=== PATIENT | female | born 1995 | race Caucasian/White ===

== ENCOUNTER → 2020-09-27 | Outpatient (CLI) | payer BC ==
--- NOTE | 2020-09-27 12:30 | Diagnostic Imaging Report ---
INDICATION: Anatomy scan. TECHNIQUE: Multiple real-time grayscale images were obtained over the gravid uterus. COMPARISON: None. FINDINGS: Single live fetus in a breech presentation. heart rate was recorded at 169 BPM. Placenta is posterior and fundal. Amniotic fluid index is 9.1 cm. Cervical length is approximately 4.6 cm. survey demonstrates kidneys, bladder, and stomach to be unremarkable. brain is unremarkable. There is a four-chamber heart. There is a three-vessel cord with normal insertion. spine is unremarkable. Biometrical measurements are as follows: Biparietal 4.45 cm, age 19 weeks 4 days. Head circumference 16.78 cm, age 19 weeks 4 days. Abdominal circumference 14.38 cm, age 19 weeks 5 days. Femur length 3.02 cm, age 19 weeks 3 days. Sonographic estimate age: 19 weeks 4 days. Sonographic estimated date of delivery: 02/17/2021. Estimated Weight: 298 gm (+/- 43 gm). LMP percentile: 43%. heart rate: 169 beats per minute. number: 1 of 1. IMPRESSION: Single live IUP at 19 weeks 3 days gestational age. Estimated date of confinement sonographically is 02/17/2021. Dictated by: Dictated on workstation # [id number]
== END ==
LOC: RAD 10:00
PROVIDERS: ATTEND Nurse Practitioner Women's Health
DX: Z34.02 Encounter for supervision of normal first pregnancy, second trimester (principal); Z3A.19 19 weeks gestation of pregnancy
CPT/HCPCS: 76805

== ENCOUNTER 2021-01-15 18:35 | Outpatient (CLI) | payer BC ==
[~2021-01-15] VITALS: Ht 165 cm; Wt 65.3 kg
[2021-01-15 18:40] VITALS: BP 114/70
[2021-01-15 19:00] VITALS: BP 114/70
[2021-01-15] MEDS ORDERED: ONDANSETRON 4 MG (ZOFRAN) ORAL DISSOLVE TAB PO STA (20:14)
[2021-01-15] MEDS ORDERED: ONDN4T PO (20:17)
[2021-01-15] MEDS ORDERED: ONDANSETRON 4 MG (ZOFRAN) ORAL DISSOLVE TAB ONE (20:27)
--- NOTE | 2021-01-16 07:40 | Physician Query-Final Dx ---
Clinic Account Progress/Dx Physician Query: Please give diagnosis Please include # weeks gestation Date of Service Jan 15, 2021 at 18:35 DIEGO MALLOY Jan 16, 2021 07:40
== END 2021-01-15 20:54 ==
LOC: WSo 18:35 → LDRP 18:35 → WSo 20:54
PROVIDERS: ATTEND Obstetrics & Gynecology
DX: O42.90 Premature rupture of membranes, unspecified as to length of time between rupture and onset of labor, unspecified weeks of gestation (principal); Z3A.00 Weeks of gestation of pregnancy not specified
CPT/HCPCS: 99214

== ENCOUNTER 2021-02-07 19:07 | Inpatient (IN) | payer BC ==
[~2021-02-07] VITALS: Ht 165.1 cm; Wt 64.4 kg
[~2021-02-07 19:07] MED LIST: ONDN4T PO
[2021-02-07] MEDS ORDERED: LACTATED RINGERS 1,000 ML IV SCH (19:30)
[2021-02-07 20:00] VITALS: BP 109/70
[2021-02-07 20:14] LABS: BASOPHILS % (AUTO) 0 % (0-10); EOSINOPHILS % (AUTO) 0 % (0-10); HEMATOCRIT 34 % (35-52); HEMOGLOBIN 11.3 g/dL (11.5-16.0); LYMPHOCYTES # (AUTO) 1.7 10^3/uL (1.0-4.0); LYMPHOCYTES % (AUTO) 19 % (12-44); MEAN CORPUSCULAR HEMOGLOBIN 29 pg (25-34); MEAN CORPUSCULAR HGB CONC 33 g/dL (32-36); MEAN CORPUSCULAR VOLUME 87 fL (80-99); MEAN PLATELET VOLUME 11.2 fL (9.0-12.2); MONOCYTES # (AUTO) 0.8 10^3/uL (0.0-1.0); MONOCYTES % (AUTO) 9 % (0-12); NEUTROPHILS # (AUTO) 6.5 10^3/uL (1.8-7.8); NEUTROPHILS % (AUTO) 71 % (42-75); PLATELET COUNT 192 10^3/uL (130-400); WHITE BLOOD COUNT 9.1 10^3/uL (4.3-11.0)
[2021-02-07 20:18] VITALS: BP 109/70
[2021-02-07 20:23] LABS: BILIRUBIN,URINE NEGATIVE (NEGATIVE); CLARITY,URINE CLEAR; COLOR,URINE YELLOW; GLUCOSE, URINE (UA) NEGATIVE (NEGATIVE); KETONES,URINE NEGATIVE (NEGATIVE); LEUKOCYTE ESTERASE ,URINE NEGATIVE (NEGATIVE); NITRITE,URINE NEGATIVE (NEGATIVE); PROTEIN,URINE 1+ (NEGATIVE)
[2021-02-07] MEDS: D5 LR IV SOLUTION 1,000 ML IV SCH (20:27)
[2021-02-07 21:00] VITALS: BP 108/68
[2021-02-07 21:03] LABS: BACTERIA,URINE MODERATE /HPF; CALCIUM OXALATE CRYSTALS,UR MODERATE /LPF; WBC,URINE RARE /HPF
[2021-02-07 21:04] LABS: URINE OTHER CLUE CELLS /HPF
[2021-02-07 22:00] VITALS: BP 106/61
[2021-02-07] MEDS ORDERED: CATHETER FLUSH 10 ML SYR IV SCH (22:00)
[2021-02-07 23:00] VITALS: BP 92/54
[2021-02-07 23:20] VITALS: BP 90/55
[2021-02-08] VITALS (59 sets, daily range): BP systolic 80–165; BP diastolic 48–83
[2021-02-08] MEDS: D5 LR IV SOLUTION 1,000 ML IV SCH ×2 (04:26→12:25)
[2021-02-08] MEDS ORDERED: OXYTOCIN PRE-MIX DRIP 500 ML IV SCH ×2 (08:15→19:45)
[2021-02-08] MEDS ORDERED: fentaNYL 2 mcg/ml BUPIVA 0.125 100 ML ONE (10:56)
[2021-02-08] MEDS ORDERED: fentaNYL INJ 100 MCG/2 ML AMP ONE (11:20)
[2021-02-08] MEDS ORDERED: METOCLOPRAMIDE INJ 10 MG/2 ML (REGLAN) IV PRN (12:15)
[2021-02-08] MEDS ORDERED: ONDANSETRON 4 MG/2 ML (SDV) Z0FRAN IV PRN (12:15)
[2021-02-08] MEDS ORDERED: NALOXONE 0.4 MG/ML 1 ML (NARCAN) VIAL IV PRN ×3 (12:15→19:45)
[2021-02-08] MEDS ORDERED: diphenhydrAMINE 50 MG/ML INJ (BENADRYL) IV PRN (12:15)
[2021-02-08] MEDS ORDERED: EPIDURAL (fentaNYL 2 MCG/ML BUPIVA 0.125%)100 ML BAG EPI PRN (12:15)
[2021-02-08] MEDS ORDERED: LACTATED RINGERS 1,000 ML IV ONE (12:15)
[2021-02-08] MEDS ORDERED: LIDOCAINE/EPI 2% 1:200,00 (XYLOCAINE) 20 ML VIAL ONE (18:39)
[2021-02-08] MEDS ORDERED: METHYLERGONOVINE 0.2 MG/ML (METHERGINE) AMP ONE (19:26)
--- NOTE | 2021-02-08 19:34 | History & Physical-OB ---
OB - Chief Complaint & HPI Date/Time Date of Admission: Date of Admission: Feb 07, 2021 at 19:07 Date seen by a Provider: Feb 08, 2021 Time Seen by a Provider: 07:30 Chief Complaint/History OB-Reason for Admission/Chief: Induction of Labor Hx : 1 Hx Para: 0 Expected Date of Delivery: Feb 13, 2021 Gestational Age in Weeks: 39 Gestational Age in Days: 1 Admission Nurse Assessment Rev: Yes History of Labs GBS neg Allergies and Home Medications Allergies Coded Allergies: No Known Drug Allergies (Unverified , 01/15/21) Home Medications Ondansetron HCl 4 Mg Tab, 8 MG PO PRN Prescribed by: TATUM BOSS on 01/15/212016 Patient Home Medication List Home Medication List Reviewed: Yes OB - History Hx of Present Care: Yes Ultrasounds: Normal mid trimester US Obstetrical Complications: None Medical Complications: None Patient Past Medical History n/a Social History/Family History 2nd Hand Smoke Exposure: No OB - Admission Exam Physical Exam Vitals: Vital Signs 02/08/21 02/08/21 02/08/21 15:00 17:30 18:45 Temp 36.4 Pulse 76 Resp 18 B/P (MAP) 165/60 (95) Pulse Ox 100 O2 Delivery Room Air HEENT: NCAT Heart: Rhythm Normal Lungs: Clear Abdomen: Gravid Extremities: Normal Reflexes: Normal Cervical Dilatation: 2cm Effacement: 75% Station: -1 Membranes: Intact Heart Rate: 130's Accelerations: Accelerations Present Decelerations: No Decelerations Short Term Variability: Present [employer] Variability: Average (6-25) Contractions on Admission: >10 Minutes Apart Intensity: Mild Simons Scoring Tool (Modified) Dilation (cm): 1-2cm (1) Effacement (%): 80-100% (3) Descent/Station: -1,0 (2) Cervix Consistency: Soft (2) Cervix Position: Anterior (2) Add 1 point for: Each previous vaginal delivery (1) Simons Score: 9 Labs Laboratory Tests Test 02/07/21 19:35 Range/Units White Blood Count 9.1 4.3-11.0 10^3/uL Red Blood Count 3.90 3.80-5.11 10^6/uL Hemoglobin 11.3 L 11.5-16.0 g/dL Hematocrit 34 L 35-52 % Mean Corpuscular Volume 87 80-99 fL Mean Corpuscular Hemoglobin 29 25-34 pg Mean Corpuscular Hemoglobin Concent 33 32-36 g/dL Red Cell Distribution Width 13.2 10.0-14.5 % Platelet Count 192 130-400 10^3/uL Mean Platelet Volume 11.2 9.0-12.2 fL Immature Granulocyte % (Auto) 1 % Neutrophils (%) (Auto) 71 42-75 % Lymphocytes (%) (Auto) 19 12-44 % Monocytes (%) (Auto) 9 0-12 % Eosinophils (%) (Auto) 0 0-10 % Basophils (%) (Auto) 0 0-10 % Neutrophils # (Auto) 6.5 1.8-7.8 10^3/uL Lymphocytes # (Auto) 1.7 1.0-4.0 10^3/uL Monocytes # (Auto) 0.8 0.0-1.0 10^3/uL Eosinophils # (Auto) 0.0 0.0-0.3 10^3/uL Basophils # (Auto) 0.0 0.0-0.1 10^3/uL Immature Granulocyte # (Auto) 0.1 0.0-0.1 10^3/uL OB - Assessment/Plan/Diagnosis Assessment Assessment: induction of labor Admission Dx 25 y o @ 39 weeks Elective IOL GBS neg Admission Status: Inpatient Order (span 2 midnights) Reason for Inpatient Admission: IOL at 39 weeks Plan Plan: Induction Induction Method: per Misoprostol Protocol JESSE HERNANDEZ DO Feb 08, 2021 19:33
--- NOTE | 2021-02-08 19:37 | OB Labor & Delivery Record ---
L&D History Date of Service Date of Service: Feb 08, 2021 History Expected Date of Delivery: Feb 13, 2021 Gestational Age in Weeks: 39 Hx : 1 Hx Para: 0 Complications Events: Routine care Operative Indications (Cesarea: N/A-Vaginal Delivery Intrapartal Events: None L&D Stage1 Stage One Onset of Labor - Date: Feb 08, 2021 Monitors and Tracing Monitor Mode: External Heart Rate: 125 Monitor Accelerations: Uniform Monitor Decelerations: Variable Station: -1 Correction Variability: Average (6-10) Short Term Variability: Present Presentation: Vertex Vital Signs VS - Last 72 Hours, by Label 02/07/21 02/07/21 02/07/21 02/07/21 20:00 20:18 21:00 22:00 Temp 36.4 36.4 Pulse 88 88 94 71 Resp 18 18 18 18 B/P (MAP) 109/70 (83) 108/68 (81) 106/61 (76) Pulse Ox 98 98 O2 Delivery Room Air Room Air Room Air Room Air 02/07/21 02/07/21 02/08/21 02/08/21 23:00 23:20 00:00 01:00 Pulse 76 72 80 77 Resp 18 18 18 18 B/P (MAP) 92/54 (67) 90/55 (67) 89/55 (66) 101/67 (78) O2 Delivery Room Air Room Air Room Air Room Air 02/08/21 02/08/21 02/08/21 02/08/21 02:00 03:00 04:00 05:00 Temp 36.5 Pulse 67 71 71 87 Resp 18 18 18 18 B/P (MAP) 115/75 (88) 93/55 (68) 107/75 (86) 88/56 (67) O2 Delivery Room Air Room Air Room Air Room Air 02/08/21 02/08/21 02/08/21 02/08/21 06:00 07:00 07:20 08:20 Temp 36.6 Pulse 58 99 73 75 Resp 18 18 18 18 B/P (MAP) 105/65 (78) 96/57 (70) 111/72 (85) 101/66 (78) O2 Delivery Room Air Room Air Room Air Room Air 02/08/21 02/08/21 02/08/2121 08:40 09:20 09:40 09:55 Temp 36.8 Pulse 67 64 82 54 Resp 18 18 18 18 B/P (MAP) 109/75 (86) 112/74 (87) 107/75 (86) 120/75 (90) O2 Delivery Room Air Room Air Room Air Room Air 02/08/21 02/08/21 02/08/21 02/08/21 10:10 10:25 10:40 10:55 Pulse 63 64 57 66 Resp 18 18 18 18 B/P (MAP) 121/76 (91) 114/73 (87) 118/73 (88) 112/78 (89) O2 Delivery Room Air Room Air Room Air Room Air 02/08/21 02/08/21 02/08/21 02/08/21 11:10 11:21 11:23 11:26 Pulse 61 65 64 78 Resp 18 18 18 18 B/P (MAP) 116/68 (84) 107/65 (79) 106/62 (77) 98/62 (74) Pulse Ox 100 100 100 100 O2 Delivery Room Air Room Air Room Air Room Air 02/08/21 02/08/21 02/08/21 02/08/21 11:30 11:34 11:38 11:42 Pulse 71 72 80 81 Resp 18 18 18 18 B/P (MAP) 90/55 (67) 92/58 (69) 93/55 (68) 90/53 (65) Pulse Ox 99 98 98 98 O2 Delivery Room Air Room Air Room Air Room Air 02/08/21 02/08/21 02/08/21 02/08/21 12:00 12:15 12:30 12:45 Pulse 61 68 66 55 Resp 18 18 18 18 B/P (MAP) 93/56 (68) 99/57 (71) 90/58 (69) 80/48 (59) Pulse Ox 98 98 98 98 O2 Delivery Room Air Room Air Room Air Room Air 02/08/21 02/08/21 02/08/21 02/08/21 13:00 13:15 13:30 13:45 Pulse 61 60 63 65 Resp 18 18 18 18 B/P (MAP) 93/57 (69) 94/55 (68) 100/55 (70) 95/62 (73) Pulse Ox 99 97 98 99 O2 Delivery Room Air Room Air Room Air Room Air 02/08/21 02/08/21 02/08/21 02/08/21 14:00 14:20 14:48 15:00 Temp 36.2 Pulse 69 73 64 54 Resp 18 18 18 18 B/P (MAP) 101/53 (69) 103/57 (72) 96/55 (69) 84/52 (63) Pulse Ox 98 100 100 100 O2 Delivery Room Air Room Air Room Air Room Air 02/08/21 02/08/21 02/08/21 02/08/21 15:15 15:30 15:45 16:00 Pulse 57 55 54 56 Resp 18 18 18 18 B/P (MAP) 91/53 (66) 84/51 (62) 92/55 (67) 86/52 (63) O2 Delivery Room Air Room Air Room Air Room Air 02/08/21 02/08/21 02/08/21 02/08/21 16:15 16:30 17:00 17:15 Pulse 70 57 59 72 Resp 18 18 18 18 B/P (MAP) 92/53 (66) 102/59 (73) 103/67 (79) 102/62 (75) O2 Delivery Room Air Room Air Room Air Room Air 02/08/21 02/08/21 02/08/21 02/08/21 17:30 17:45 18:00 18:15 Temp 36.4 Pulse 54 60 54 58 Resp 18 18 18 18 B/P (MAP) 102/66 (78) 101/68 (79) 102/67 (79) 98/58 (71) O2 Delivery Room Air Room Air Room Air Room Air 02/08/21 02/08/21 18:30 18:45 Pulse 69 76 Resp 18 18 B/P (MAP) 101/72 (82) 165/60 (95) O2 Delivery Room Air Room Air Rupture of Membranes Spontaneous Ruture of Membrane: No Amniotic Membrane Rupture Time: 0753 Amniotic Membrane Fluid Desc.: Clear Vaginal Bleeding Description: Normal Show Induction/Anesthesia Epidural Cath Placement - Time: 1114 Progress/Notes Patient admitted last night for elective IOL. Oral misoprostol given overnight 100 mcg followed by 50 q 4 hrs. AROM performed this AM, and pitocin started and reached throughout the day max dose of 6 mu. Epidural was obtained, and she progressed to complete and +1 station. L&D Stage2 Stage Two Stage II Date: Feb 08, 2021 Monitors and Tracing Monitor Mode: External Heart Rate: 125 Monitor Accelerations: Uniform Monitor Decelerations: Variable Slash Trimmer Variability: Average (6-10) Short Term Variability: Present Position: Right Occiput Anterior Presentation: Vertex Cord Descript/Complications Cord Vessel Description: 3 Vessels Complications tight nuchal cord delivered through Delivery Type Delivery Method: Spontaneous Vaginal Anterior Shoulder: Left Episiotomy/Perineal Laceration Laceraction(s)/Extensions: Yes Episiotomy Description: Vaginal Extension/lac, 2nd degree Degree (describe repair) 2nd degree vaginal laceration repaired using 3-0 rapide suture in usual fashion. Condition of Infant Delivery 1 minute Comment: 6 5 minute Comment: 9 Notes Live male infant weight 7lbs 6 oz Condition of Condition of : Living Exam: No Observed Abnormalities L&D Stage3 Stage Three Stage III Date: Feb 08, 2021 Pictocin Pitocin Administration mu/min: 8 Pitocin ml/hr: 8 Pitocin Administration Comment: 350 methergine 0.2 mg given IM due to continued bleeding after delivery of placenta, shortly after bleeding lightened significantly. Placenta Delivery Placenta Delivery: Spontaneous Delivery Summary Summary Estimated blood loss (mL): 350 Attending at delivery: Jesse Hernandez DO Condition of Delivery Examined: Cervix Examined, Uterus Explored Post Hemorrhage: No Condition of Mother stable Condition of Infant (s) stable JESSE HERNANDEZ DO Feb 08, 2021 19:37
[2021-02-08] MEDS ORDERED: TETANUS,DIPTH,PERTUSS P/F (BOOSTRIX) 0.5 ML VIAL IM ONE (19:45)
[2021-02-08] MEDS ORDERED: ONDANSETRON 4 MG/2 ML (SDV) Z0FRAN IVP PRN (19:45)
[2021-02-08] MEDS ORDERED: METHYLERGONOVINE 0.2 MG/ML (METHERGINE) AMP IM ONE (19:45)
[2021-02-08] MEDS ORDERED: MEASLES,MUMPS,RUBELLA 1 EA INJ SQ ONE (19:45)
[2021-02-08] MEDS ORDERED: BENZOCAINE/MENTHOL (DERMOPLAST) 56 ML CAN TP PRN (19:45)
[2021-02-08] MEDS ORDERED: DIBUCAINE 1% OINTMENT 30 GM TUBE TOP PRN (19:45)
[2021-02-08] MEDS ORDERED: IBUPROFEN 600 MG (MOTRIN) TAB PO ONE (21:30)
[2021-02-08] MEDS: IBUPROFEN 600 MG (MOTRIN) TAB PO SCH (21:32)
[2021-02-08] MEDS: DOCUSATE SODIUM 100 MG (COLACE) CAP PO SCH (21:32)
[2021-02-08] MEDS ORDERED: CATHETER FLUSH 10 ML SYR IV SCH (22:00)
[2021-02-09 02:15] VITALS: BP 103/57
[2021-02-09] MEDS: IBUPROFEN 600 MG (MOTRIN) TAB PO SCH ×5 (03:25→21:13)
[2021-02-09 05:45] LABS: BASOPHILS % (AUTO) 0 % (0-10); EOSINOPHILS % (AUTO) 0 % (0-10); HEMATOCRIT 31 % (35-52); HEMOGLOBIN 10.3 g/dL (11.5-16.0); LYMPHOCYTES # (AUTO) 1.5 10^3/uL (1.0-4.0); LYMPHOCYTES % (AUTO) 12 % (12-44); MEAN CORPUSCULAR HEMOGLOBIN 29 pg (25-34); MEAN CORPUSCULAR HGB CONC 34 g/dL (32-36); MEAN CORPUSCULAR VOLUME 88 fL (80-99); MEAN PLATELET VOLUME 11.6 fL (9.0-12.2); MONOCYTES # (AUTO) 0.9 10^3/uL (0.0-1.0); MONOCYTES % (AUTO) 7 % (0-12); NEUTROPHILS % (AUTO) 80 % (42-75); PLATELET COUNT 146 10^3/uL (130-400); WHITE BLOOD COUNT 12.5 10^3/uL (4.3-11.0)
[2021-02-09 06:32] VITALS: BP 106/60
[2021-02-09 08:30] VITALS: BP 100/65
[2021-02-09] MEDS: DOCUSATE SODIUM 100 MG (COLACE) CAP PO SCH ×2 (08:35→20:35)
[2021-02-09] MEDS: PRENATAL VITAMIN 1 EA TAB PO SCH (08:35)
[2021-02-09] MEDS: WITCH HAZEL(TUCKS) 40 EA JAR TOP PRN (08:37)
[2021-02-09] MEDS: FERROUS SULF 325 MG (IRON) TAB PO SCH (09:00)
--- NOTE | 2021-02-09 09:06 | Postpartum Progress Note ---
Note Note Day # 1 Subjective: Patient is without complaints. Ambulating, voiding. Tolerating a regular diet without nausea or vomiting. Normal lochia. Pain is well controlled with oral pain medications. Objective: Physical Exam: General - Alert and oriented, no apparent distress Abdomen - Soft, appropriately tender to palpation, non-distended, fundus firm at umbilicus Extremities - no edema, negative Vicki's bilaterally Assessment: PPD 1 NVD Acute blood loss anemia Plan: Routine care. Encourage breast feeding. Encourage ambulation. Ferrous sulfate supplementation. Plan for discharge tomorrow Vitals - Labs Vital Signs - I&O Vital Signs Date Time Temp Pulse Resp B/P (MAP) Pulse Ox O2 Delivery O2 Flow Rate FiO2 02/09/21 06:32 36.5 60 18 106/60 (75) 95 Room Air 02/09/21 02:15 36.1 61 16 103/57 (72) 97 Room Air 02/08/21 21:41 36.6 73 18 103/57 (72) 100 Room Air 02/08/21 21:00 36.9 71 18 101/70 (80) 99 Room Air 02/08/21 20:30 67 18 109/68 (82) Room Air 02/08/21 20:00 36.8 83 18 110/65 (80) 99 Room Air 02/08/21 19:45 36.6 90 18 109/58 (75) 99 Room Air 02/08/21 19:25 77 18 92/52 (65) 99 Room Air 02/08/21 19:12 117 18 118/83 (95) Room Air 02/08/21 18:45 76 18 165/60 (95) Room Air 02/08/21 18:30 69 18 101/72 (82) Room Air 02/08/21 18:15 58 18 98/58 (71) Room Air 02/08/21 18:00 54 18 102/67 (79) Room Air 02/08/21 17:45 60 18 101/68 (79) Room Air 02/08/21 17:30 36.4 54 18 102/66 (78) Room Air 02/08/21 17:15 72 18 102/62 (75) Room Air 02/08/21 17:00 59 18 103/67 (79) Room Air 02/08/21 16:30 57 18 102/59 (73) Room Air 02/08/21 16:15 70 18 92/53 (66) Room Air 02/08/21 16:00 56 18 86/52 (63) Room Air 02/08/21 15:45 54 18 92/55 (67) Room Air 02/08/21 15:30 55 18 84/51 (62) Room Air 02/08/21 15:15 57 18 91/53 (66) Room Air 02/08/21 15:00 54 18 84/52 (63) 100 Room Air 02/08/21 14:48 64 18 96/55 (69) 100 Room Air 02/08/21 14:20 36.2 73 18 103/57 (72) 100 Room Air 02/08/21 14:00 69 18 101/53 (69) 98 Room Air 02/08/21 13:45 65 18 95/62 (73) 99 Room Air 02/08/21 13:30 63 18 100/55 (70) 98 Room Air 02/08/21 13:15 60 18 94/55 (68) 97 Room Air 02/08/21 13:00 61 18 93/57 (69) 99 Room Air 02/08/21 12:45 55 18 80/48 (59) 98 Room Air 02/08/21 12:30 66 18 90/58 (69) 98 Room Air 02/08/21 12:15 68 18 99/57 (71) 98 Room Air 02/08/21 12:00 61 18 93/56 (68) 98 Room Air 02/08/21 11:42 81 18 90/53 (65) 98 Room Air 02/08/21 11:38 80 18 93/55 (68) 98 Room Air 02/08/21 11:34 72 18 92/58 (69) 98 Room Air 02/08/21 11:30 71 18 90/55 (67) 99 Room Air 02/08/21 11:26 78 18 98/62 (74) 100 Room Air 02/08/21 11:23 64 18 106/62 (77) 100 Room Air 02/08/21 11:21 65 18 107/65 (79) 100 Room Air 02/08/21 11:10 61 18 116/68 (84) 100 Room Air 02/08/21 10:55 66 18 112/78 (89) Room Air 02/08/21 10:40 57 18 118/73 (88) Room Air 02/08/21 10:25 64 18 114/73 (87) Room Air 02/08/21 10:10 63 18 121/76 (91) Room Air 02/08/21 09:55 54 18 120/75 (90) Room Air 02/08/21 09:40 82 18 107/75 (86) Room Air 02/08/21 09:20 36.8 64 18 112/74 (87) Room Air I & O 02/09/21 07:00 Intake Total 1000 ml Balance 1000 ml Labs Laboratory Tests 02/09/21 05:21: White Blood Count 12.5H, Red Blood Count 3.50L, Hemoglobin 10.3L, Hematocrit 31L , Mean Corpuscular Volume 88, Mean Corpuscular Hemoglobin 29, Mean Corpuscular Hemoglobin Concent 34, Red Cell Distribution Width 13.2, Platelet Count 146, Mean Platelet Volume 11.6, Immature Granulocyte % (Auto) 1, Neutrophils (%) (Auto) 80H, Lymphocytes (%) (Auto) 12, Monocytes (%) (Auto) 7, Eosinophils (%) (Auto) 0, Basophils (%) (Auto) 0, Neutrophils # (Auto) 10.0H, Lymphocytes # (Auto) 1.5, Monocytes # (Auto) 0.9, Eosinophils # (Auto) 0.0, Basophils # (Auto) 0.0, Immature Granulocyte # (Auto) 0.1 Microbiology 02/07/21 Urine Culture - Final, Complete NO GROWTH JESSE HERNANDEZ DO Feb 09, 2021 09:06
--- NOTE | 2021-02-09 09:07 | Discharge Inst-Women's Service ---
Discharge Inst-Women's Serv Depart Medication/Instructions New, Converted or Re-Newed RX: Transmitted to Pharmacy Final Diagnosis PPD 2 NVD Problems Reviewed?: Yes Consults/Follow Up Additional Follow Up: Yes Orders/Referrals Dr. Hernandez in 6 weeks Activity Activity: Activity as Tolerated Driving Instructions: No Driving for 1 Week NO SMOKING: NO SMOKING Nothing Inside Vagina: No Douching, No Cash, No Tampons Diet Discharge Diet: No Restrictions Symptoms to Report to : Bleeding Excessive, Pain Increased, Fever Over 101 Degrees F, Vaginal Bleeding Increase, Questions/Concerns For Any Problems or Questions: Contact Your Physician JESSE HERNANDEZ DO Feb 09, 2021 09:07
[2021-02-09] MEDS ORDERED: IBUP-844 PO (09:14)
[2021-02-09] MEDS ORDERED: BENZ78AE5 TP (09:14)
[2021-02-09] MEDS ORDERED: DIBU30OI TOP (09:14)
[2021-02-09] MEDS ORDERED: FERR325T24 PO (09:14)
[2021-02-09] MEDS ORDERED: DCS100C PO (09:14)
[2021-02-09] MEDS ORDERED: ACHD5005 PO (09:14)
[2021-02-09 13:00] VITALS: BP 111/67
--- NOTE | 2021-02-09 13:54 | Anesthesia-Regional Post-Op ---
Regional Patient Condition Mental Status: Alert, Oriented x3 Circulation: Same as Pre-Op Headache: Absent Sensation: Full Recovery Motor Block: Absent Post Op Complications Complications None Follow Up Care/Instructions Patient Instructions None needed. Anesthesia/Patient Condition Patient is doing well, no complaints, stable vital signs, no apparent adverse anesthesia problems. No complications reported per nursing. MYCHAL HANSON CRNA Feb 09, 2021 13:54
[2021-02-09 16:45] VITALS: BP 114/55
[2021-02-09] MEDS ORDERED: ACETAMINOPHEN 500 MG TAB (TYLENOL) PO PRN (18:30)
[2021-02-09 20:47] VITALS: BP 99/57
[2021-02-10] MEDS: HYDROcodone/APAP 5 MG/325 MG (LORTAB) TAB PO PRN ×2 (03:06→09:29)
[2021-02-10] MEDS: IBUPROFEN 600 MG (MOTRIN) TAB PO SCH ×2 (03:06→09:24)
[2021-02-10 03:08] VITALS: BP 91/54
--- NOTE | 2021-02-10 08:43 | Postpartum Progress Note ---
Note Note Day # 2 Subjective: Patient is without complaints. Ambulating, voiding. Tolerating a regular diet without nausea or vomiting. Normal lochia. Pain is well controlled with oral pain medications. Objective: Physical Exam: General - Alert and oriented, no apparent distress Abdomen - Soft, appropriately tender to palpation, non-distended, fundus firm at umbilicus Extremities - no edema, negative Vicki's bilaterally Assessment: PPD 2 NVD Acute blood loss anemia Plan: Routine care. Encourage breast feeding. Encourage ambulation. Ferrous sulfate supplementation. Plan for discharge today Vitals - Labs Vital Signs - I&O Vital Signs Date Time Temp Pulse Resp B/P (MAP) Pulse Ox O2 Delivery O2 Flow Rate FiO2 02/10/21 03:08 36.1 63 18 91/54 (66) 97 Room Air 02/09/21 20:47 36.6 64 18 99/57 (71) 98 Room Air 02/09/21 16:45 37.0 81 18 114/55 (74) 96 Room Air 02/09/21 13:00 37.0 70 18 111/67 (82) 98 Room Air Labs Microbiology 02/07/21 Urine Culture - Final, Complete NO GROWTH JESSE HERNANDEZ DO Feb 10, 2021 08:43
[2021-02-10] MEDS: FERROUS SULF 325 MG (IRON) TAB PO SCH (09:00)
[2021-02-10 09:15] VITALS: BP 107/61
[2021-02-10] MEDS: DOCUSATE SODIUM 100 MG (COLACE) CAP PO SCH (09:23)
[2021-02-10] MEDS: PRENATAL VITAMIN 1 EA TAB PO SCH (09:23)
[2021-02-10] MEDS: WITCH HAZEL(TUCKS) 40 EA JAR TOP PRN (13:06)
[2021-02-10 13:25] VITALS: BP 107/61
[2021-02-11] MEDS ORDERED: ACHD5005 PO (10:26)
== END 2021-02-10 13:25 | disposition home or self-care (01) | DRG 806 ==
LOC: LDRP 19:07
PROVIDERS: ADMIT Obstetrics & Gynecology; ATTEND Obstetrics & Gynecology
PROC: 10E0XZZ Delivery of Products of Conception, External Approach (ICD-10-PCS; principal; 2021-02-08)
PROC: 0KQM0ZZ Repair Perineum Muscle, Open Approach (ICD-10-PCS; 2021-02-08)
PROC: 10907ZC Drainage of Amniotic Fluid, Therapeutic from Products of Conception, Via Natural or Artificial Opening (ICD-10-PCS; 2021-02-08)
DX: O69.81X0 Labor and delivery complicated by cord around neck, without compression, not applicable or unspecified (principal); D62 Acute posthemorrhagic anemia; Z37.0 Single live birth; Z3A.39 39 weeks gestation of pregnancy; O70.1 Second degree perineal laceration during delivery; O90.81 Anemia of the puerperium
CPT/HCPCS: 36415; 81000; 85025; 86850; 86900; 86901; 87088

== ENCOUNTER → 2022-11-24 | Outpatient (CLI) | payer SELFPAY ==
[~2022-11-24] MED LIST changes: +ACHD5005 PO; +BENZ78AE5 TP; +DIBU30OI TOP; +DOCU-239 PO; +FERR325T24 PO; +IBUP-844 PO
--- NOTE | 2022-11-24 14:40 | Diagnostic Imaging Report ---
INDICATION: Anatomy scan. TECHNIQUE: Multiple Real-time grayscale images were obtained over the gravid uterus. COMPARISON: None. FINDINGS: There is a single live fetus in a cephalic presentation. The heart rate was recorded at 144 BPM. The placenta is anterior with no previa detected. The amniotic fluid volume is normal at 12.8 cm. The survey demonstrates the kidneys, bladder, and stomach to be unremarkable. The brain is unremarkable. There is a four-chamber heart. There is a three-vessel cord with normal insertion. The spine is unremarkable. The cervical length is 4.4 cm. Biometrical measurements are as follows: Biparietal 4.88 cm, age 20 weeks 6 days. Head circumference 18.26 cm, age 20 weeks 5 days. Abdominal circumference 15.04 cm, age 20 weeks 2 days. Femur length 3.21 cm, age 20 weeks 0 days. Sonographic estimate age: 20 weeks 4 days. Sonographic estimated date of delivery: 04/09/2023. Estimated Weight: 340 gm (+/- 50 gm). LMP percentile: 34%. heart rate: 144 beats per minute. number: 1 of 1. IMPRESSION: Single live IUP of 20 weeks 4 days gestational age. The estimated date of confinement sonographically is 04/09/2023. Dictated by: Dictated on workstation # [id number]
== END ==
LOC: RAD 13:23
PROVIDERS: ATTEND Nurse Practitioner Women's Health
DX: Z34.02 Encounter for supervision of normal first pregnancy, second trimester (principal); Z3A.20 20 weeks gestation of pregnancy
CPT/HCPCS: 76805

== ENCOUNTER 2023-04-02 06:45 | Inpatient (IN) | payer SELFPAY ==
[~2023-04-02] VITALS: Ht 165.1 cm; Wt 67.0 kg
[2023-04-02] VITALS (23 sets, daily range): BP systolic 93–134; BP diastolic 54–82
--- OUTSIDE RECORDS SUMMARY | 2023-04-02 06:57 | XMS REPORT ---
Author Author [facility] ter of [facility] ter [facility] Address Unknown Phone Unavailable Care Team Providers Care Manager Mortgage Name Role Phone MAIA MCGRAW Unavailable ALLERGIES No Known Allergies ENCOUNTERS from 1993 to 2022-07-14 Encounter Location Date Provider Diagnosis [facility] [address] [facility] [id number] [place] [address] Jul, MAIAELIZ LEMUSDONALDO Acute non-recurrent frontal sinusitis J01.10 IMMUNIZATIONS Vaccine Route Administration Date Status 1st Dose COVID-19, mRNA, MOD VIVIANA, 0.5 mL 2020 IM Intramuscular Jul 26, 2020 Administered 2nd Dose COVID-19, mRNA, MOD VIVIANA, 0.5 mL 2 IM Intramuscular Aug 23, 2020 Administered PRIVATE FLU 22-23 (FLULAVAL) AGE 6MO AND UP IM Intramuscular Jun 11, 2022 Administered SOCIAL HISTORY Sex Assigned At : Social History Observation Description Sex Assigned At Unknown Alcohol Screen (Audit-C) Question Answer Notes Did you have a drink containing alcohol in the p ast year? No Points 0 Interpretation Negative PHQ2 Question Answer Notes In the last 2 weeks, how oft en have you had little interest or pleasure in doing things? Not at all In the last 2 weeks, how oft en have you been feeling down, depressed, or hopeless? Not at all Total PHQ2 Score 0 REASON FOR REFERRAL No Information VITAL SIGNS Height 65 in Jul, Height-cm 165.1 cm Jul, Weight 120 lbs Jul, Weight-kg 54.43 kg Jul, Temperature 98.3 degrees Fahrenheit Jul, Heart Rate 79 bpm Jul, Respiratory Rate 18 bpm Jul, Oximetry 99 % Jul, BMI 19.97 kg/m2 Jul, Blood pressure systolic 120 mmHg Jul, Blood pressure diastolic 83 mmHg Jul, MEDICATIONS Medication SIG (Take, Route, Fr equency, Duration) Notes Start Date End Date Status predniSONE 20 MG 1 tablet Orally Once a day for 5 day(s) Mar, Active REASON FOR VISIT Sinus c/o-nasal congestion x 4 days. The patient is also 10 weeks . The patient has lost ten pounds since becoming due to being nauseous all the time. ([employer]) MEDICAL (GENERAL) HISTORY Type Description Date Surgical History appendectomy 2003 Hospitalization History surgery Hospitalization History child 02/09/20 21 MENTAL STATUS No Information ASSESSMENTS Encounter Date Diagnosis Assessment Notes Treatment Notes Treatment Clinical Notes Jul, Acute non-recurrent frontal sinusitis (ICD-10 - J01.10) PLAN OF TREATMENT Medication Medication Name Sig Start Date Stop Date predniSONE 20 MG 1 tablet Orally Once a day for 5 day( s) Mar, Next Appt Details prn Reason: Insurance Providers Payer Name Payer Address Payer Phone Insured Name Patient Relationship to Insured Coverage Start Date Coverage End Date Subscriber Number Group Number [employer] [place] [address] [facility] [id number] [phone] Lavell García Self - patient is the insured 2021 [id number]
--- OUTSIDE RECORDS SUMMARY | 2023-04-02 06:57 | XMS REPORT ---
Author Author [facility] ter of [facility] ter [facility] Address Unknown Phone Unavailable Care Team Providers Care Clay Transporter Name Role Phone ANTONIO SHEPARD Unavailable ALLERGIES No Known Allergies ENCOUNTERS from 1993 to 2022-07-29 Encounter Location Date Provider Diagnosis [facility] [address] [facility] [id number] [place] [address] Aug, ANTONIO SHEPARD Encounter for immunization Z23 IMMUNIZATIONS Vaccine Route Administration Date Status PRIVATE FLU 22-23 (FLULAVAL) AGE 6MO AND UP IM Intramuscular Jun 11, 2022 Administered 2nd Dose COVID-19, mRNA, MOD VIVIANA, 0.5 mL 2 IM Intramuscular Aug 23, 2020 Administered 1st Dose COVID-19, mRNA, MOD VIVIANA, 0.5 mL 2020 IM Intramuscular Jul 26, 2020 Administered SOCIAL HISTORY Sex Assigned At : [...] Score 0 REASON FOR REFERRAL No Information MEDICATIONS Medication SIG (Take, Route, Fr equency, Duration) Notes Start Date End Date Status predniSONE 20 MG 1 tablet Orally Once a day for 5 day(s) Mar, Active REASON FOR VISIT Covid Vaccine--2nd dose MEDICAL (GENERAL) HISTORY Type Description Date Surgical History appendectomy 2003 Hospitalization History surgery Hospitalization History child 02/09/20 21 MENTAL STATUS No Information ASSESSMENTS Encounter Date Diagnosis Assessment Notes Treatment Notes Treatment Clinical Notes Aug, Encounter for immunization (ICD-10 - Z23) PLAN OF TREATMENT Medication Medication Name Sig Start Date Stop Date predniSONE 20 MG 1 tablet Orally Once a day for 5 day( s) Mar, Insurance Providers Payer Name Payer Address Payer Phone Insured Name Patient Relationship to Insured Coverage Start Date Coverage End Date Subscriber Number Group Number [employer] [place] [address] [facility] [id number] Lavell García Self - patient is the insured 2021 [id number]
[2023-04-02] MEDS ORDERED: D5 LR 1,000 ML IV SOLN 1,000 ML IV ONE (08:02)
[2023-04-02] MEDS: D5 LR 1,000 ML IV SOLN 1,000 ML IV SCH ×2 (08:10→16:14)
--- NOTE | 2023-04-02 08:19 | History & Physical-OB ---
OB - Chief Complaint & HPI Date/Time Date of Admission: Date of Admission: Apr 02, 2023 at 06:45 Date seen by a Provider: Apr 02, 2023 Time Seen by a Provider: 08:15 Chief Complaint/History OB-Reason for Admission/Chief: Induction of Labor Hx : 2 Hx Para: 1 Expected Date of Delivery: Apr 09, 2023 Gestational Age in Weeks: 39 Admission Nurse Assessment Rev: Yes Allergies and Home Medications Allergies Coded Allergies: No Known Drug Allergies (Unverified , 01/15/21) Patient Home Medication List Home Medication List Reviewed: Yes Benzocaine/Menthol (Dermoplast Pain Relieving [place]) 78 Gm Aerosol, 56 EA TP UD PRN for PAIN- SEE INSTRUCTIONS Prescribed by: JESSE HERNANDEZ on 02/09/21 09 Dibucaine (Dibucaine) 30 Gm Oint, 0 GM TOP UD PRN for PAIN- SEE INSTRUCTIONS Prescribed by: JESSE HERNANDEZ on 02/09/21913 Docusate Sodium (Dok) 100 Mg Capsule, 100 MG PO BID PRN for CONSTIPATION-1ST LINE Prescribed by: JESSE HERNANDEZ on 02/09/21 09 Ferrous Sulfate (Ferosul) 325 Mg Tablet, 325 MG PO DAILY Prescribed by: JESSE HERNANDEZ on 02/09/21913 Hydrocodone/Acetaminophen (Hydrocodone-Acetamin 5-325 mg) 1 Each Tablet, 1 TAB PO Q4H PRN for PAIN-MODERATE (5-7) Prescribed by: JESSE HERNANDEZ on 02/11/21 1027 Ibuprofen (Ibu) 600 Mg Tablet, 600 MG PO Q6HR Prescribed by: JESSE HERNANDEZ on 02/09/21913 OB - History Hx of Present Care: Yes Ultrasounds: Normal mid trimester US Obstetrical Complications: None Medical Complications: None Patient Past Medical History n/a Social History/Family History 2nd Hand Smoke Exposure: No OB - Admission Exam Physical Exam HEENT: NCAT Heart: Rhythm Normal Lungs: Clear Abdomen: Gravid Extremities: Normal Reflexes: Normal Cervical Dilatation: 3cm Effacement: 75% Station: -2 Membranes: Intact Amniotic Fluid: Clear Heart Rate: 130's Accelerations: Accelerations Present Decelerations: No Decelerations Short Term Variability: Present Brim Presser Variability: Average (6-25) Contractions on Admission: 6-10 Minutes Apart Intensity: Mild Simons Scoring Tool (Modified) Dilation (cm): 3-4cm (2) Effacement (%): 51-79% (2) Descent/Station: -1,0 (2) Cervix Consistency: Soft (2) Cervix Position: Anterior (2) Add 1 point for: Each previous vaginal delivery (1) Simons Score: 11 OB - Assessment/Plan/Diagnosis Assessment Assessment: induction of labor Admission Dx 27 yo @ 39 weeks GBS neg Admission Status: Inpatient Order (span 2 midnights) Reason for Inpatient Admission: iol at 39 week Plan Induction Method: JESSE PATE DO Apr 02, 2023 08:18
[2023-04-02] MEDS ORDERED: LIDOCAINE 2% w/EPI 1:200,000 20 ML VIAL INJ PRN (09:30)
[2023-04-02] MEDS ORDERED: LACTATED RINGERS 1,000 ML 500 ML IV PRN (09:30)
[2023-04-02 09:51] LABS: BASOPHILS % (AUTO) 0 % (0-10); EOSINOPHILS # (AUTO) 0.1 10^3/uL (0.0-0.3); EOSINOPHILS % (AUTO) 1 % (0-10); HEMATOCRIT 31 % (35-52); HEMOGLOBIN 9.9 g/dL (11.5-16.0); LYMPHOCYTES # (AUTO) 1.6 10^3/uL (1.0-4.0); LYMPHOCYTES % (AUTO) 22 % (12-44); MEAN CORPUSCULAR HEMOGLOBIN 27 pg (25-34); MEAN CORPUSCULAR HGB CONC 32 g/dL (32-36); MEAN CORPUSCULAR VOLUME 85 fL (80-99); MONOCYTES # (AUTO) 0.7 10^3/uL (0.0-1.0); MONOCYTES % (AUTO) 10 % (0-12); NEUTROPHILS # (AUTO) 4.7 10^3/uL (1.8-7.8); NEUTROPHILS % (AUTO) 66 % (42-75); PLATELET COUNT 200 10^3/uL (130-400); WHITE BLOOD COUNT 7.1 10^3/uL (4.3-11.0)
[2023-04-02] MEDS ORDERED: OXYTOCIN DRIP PRE-MIX 500 ML IV SCH ×2 (10:45→20:30)
[2023-04-02] MEDS ORDERED: fentaNYL 2 mcg/ml BUPIVA 0.125 100 ML ONE (13:22)
[2023-04-02] MEDS ORDERED: fentaNYL INJECTION 100 MCG/2 ML VIAL ONE (13:33)
[2023-04-02] MEDS ORDERED: CATHETER FLUSH 10 ML SYR IV PRN (13:45)
[2023-04-02] MEDS ORDERED: NALOXONE 0.4 MG/ML 1 ML VIAL IV PRN ×2 (13:45→20:30)
[2023-04-02] MEDS ORDERED: LACTATED RINGERS 1,000 ML 1,000 ML IV ONE (13:45)
[2023-04-02] MEDS ORDERED: fentaNYL 2 mcg/ml BUPIVA 0.125 100 ML EPI SCH ×2 (13:45→16:39)
--- NOTE | 2023-04-02 20:13 | OB Labor & Delivery Record ---
L&D History Date of Service Date of Service: Apr 02, 2023 History Expected Date of Delivery: Apr 10, 2023 Gestational Age in Weeks: 38 Hx : 2 Hx Para: 1 Complications Events: Routine care Operative Indications (Cesarea: N/A-Vaginal Delivery Intrapartal Events: None L&D Stage1 Stage One Onset of Labor - Date: Apr 02, 2023 Monitors and Tracing Monitor Mode: External Heart Rate: 125 Monitor Accelerations: Uniform Monitor Decelerations: Variable Custodial Variability: Average (6-10) Short Term Variability: Present Presentation: Vertex Vital Signs VS - Last 72 Hours, by Label 04/02/23 04/02/23 04/02/23 04/02/23 09:03 13:37 13:40 13:45 Temp 36.3 36.8 Pulse 92 83 75 80 Resp 18 18 18 18 B/P (MAP) 102/73 (83) 102/73 (83) 113/69 (84) Pulse Ox 98 100 100 100 O2 Delivery Room Air Room Air Room Air Room Air 04/02/23 04/02/23 04/02/23 04/02/23 13:47 13:50 15:30 15:47 Pulse 87 71 63 78 Resp 18 18 18 18 B/P (MAP) 113/70 (84) 113/67 (82) 107/58 (74) 98/54 (69) Pulse Ox 100 100 O2 Delivery Room Air Room Air Room Air Room Air 04/02/23 04/02/23 04/02/23 04/02/23 16:00 16:45 17:45 18:00 Pulse 60 78 73 90 Resp 18 18 18 18 B/P (MAP) 107/62 (77) 93/59 (70) 106/63 (77) 115/72 (86) Pulse Ox 100 O2 Delivery Room Air Room Air Room Air 04/02/23 04/02/23 18:15 18:30 Temp 36.5 Pulse 65 70 Resp 18 18 B/P (MAP) 107/62 (77) 104/56 (72) O2 Delivery Room Air Room Air Rupture of Membranes Spontaneous Ruture of Membrane: No Amniotic Membrane Rupture Time: 0823 Amniotic Membrane Fluid Desc.: Clear Vaginal Bleeding Description: Normal Show Induction/Anesthesia Epidural Cath Placement - Time: 1348 Progress/Notes Patient admitted for elective IOL. She had arom performed this am followed by Pitocin augmentation and epidural placement. She progressed on max dose of pitocin 12 mu to complete and + 2 station. L&D Stage2 Stage Two Stage II Date: Apr 02, 2023 Monitors and Tracing Monitor Mode: External Heart Rate: 125 Monitor Accelerations: Uniform Monitor Decelerations: Variable Manufacturers Agent Variability: Average (6-10) Short Term Variability: Present Position: Right Occiput Anterior Presentation: Vertex Cord Descript/Complications Cord Vessel Description: 3 Vessels Delivery Type Delivery Method: Spontaneous Vaginal Anterior Shoulder: Left Episiotomy/Perineal Laceration Episiotomy Description: Vaginal Extension/lac, 1st degree Degree (describe repair) 1st degree vaginal laceration repaired using 3-0 vicryl in usual fashion. Condition of Infant Delivery 1 minute Comment: 8 5 minute Comment: 9 Notes Live male infant weight pending. Condition of Condition of : Living Exam: No Observed Abnormalities Resuscitation Resuscitation: N/A - Spontaneous Resp L&D Stage3 Stage Three Stage III Date: Apr 02, 2023 Pictocin Pitocin Administration mu/min: 12 Pitocin ml/hr: 12 Pitocin Administration Comment: 30 mu wide open after delivery of placenta Placenta Delivery Placenta Delivery: Spontaneous Delivery Summary Summary Estimated blood loss (mL): 350 Attending at delivery: Jesse Hernandez DO Condition of Delivery Examined: Cervix Examined, Uterus Explored Post Hemorrhage: No Condition of Mother stable Condition of (s) stable JESSE HERNANDEZ DO Apr 02, 2023 20:13
--- NOTE | 2023-04-02 20:14 | Discharge Inst-Women's Service ---
Discharge Inst-Women's Serv Depart Medication/Instructions New, Converted or Re-Newed RX: Transmitted to Pharmacy Final Diagnosis PPD 2 NVD Problems Reviewed?: Yes Consults/Follow Up Additional Follow Up: Yes Orders/Referrals Dr. Hernandez in 6 weeks Activity Activity: Activity as Tolerated Driving Instructions: No Driving for 1 Week NO SMOKING: NO SMOKING Nothing Inside Vagina: No Douching, No [place], No Tampons Diet Discharge Diet: No Restrictions Symptoms to Report to : Bleeding Excessive, Pain Increased, Fever Over 101 Degrees F, Vaginal Bleeding Increase, Questions/Concerns For Any Problems or Questions: Contact Your Physician JESSE HERNANDEZ DO Apr 02, 2023 20:14
[2023-04-02] MEDS ORDERED: DIBU30OI TOP (20:20)
[2023-04-02] MEDS ORDERED: DOCU100C37 PO (20:20)
[2023-04-02] MEDS ORDERED: FERR325T24 PO (20:20)
[2023-04-02] MEDS ORDERED: IBUP-844 PO (20:20)
[2023-04-02] MEDS ORDERED: BENZ78AE5 TP (20:20)
[2023-04-02] MEDS ORDERED: ACET-93 PO (20:20)
[2023-04-02] MEDS ORDERED: Tetanus/Diphtheria/Pertussis (Acell) ADULT Vaccine 0.5 ML IM ONE (20:30)
[2023-04-02] MEDS ORDERED: DIBUCAINE 1% OINTMENT 28 GM TUBE TOP PRN (20:30)
[2023-04-02] MEDS ORDERED: WITCH HAZEL(TUCKS) 40 EA JAR TOP PRN (20:30)
[2023-04-02] MEDS ORDERED: MEASLES, MUMPS, RUBELLA VACCINE (MMR) SQ ONE (20:30)
[2023-04-02] MEDS ORDERED: BENZOCAINE/MENTHOL (DERMOPLAST) 56 ML CAN TP PRN (20:30)
[2023-04-02] MEDS: DOCUSATE SODIUM 100 MG CAPSULE PO SCH (21:52)
[2023-04-02] MEDS: IBUPROFEN 600 MG TABLET PO SCH (21:52)
[2023-04-02] MEDS: ACETAMINOPHEN 500 MG TABLET PO SCH (21:52)
[2023-04-02] MEDS: CATHETER FLUSH 10 ML SYR IV SCH (22:00)
[2023-04-02] MEDS ORDERED: CATHETER FLUSH 10 ML SYR IV SCH (22:00)
[2023-04-03 00:45] VITALS: BP 93/53
[2023-04-03] MEDS: IBUPROFEN 600 MG TABLET PO SCH ×3 (04:15→17:53)
[2023-04-03] MEDS: ACETAMINOPHEN 500 MG TABLET PO SCH ×2 (04:15→14:56)
[2023-04-03 04:35] VITALS: BP 87/57
[2023-04-03 05:49] LABS: BASOPHILS % (AUTO) 0 % (0-10); EOSINOPHILS # (AUTO) 0.1 10^3/uL (0.0-0.3); EOSINOPHILS % (AUTO) 1 % (0-10); HEMATOCRIT 29 % (35-52); HEMOGLOBIN 9.6 g/dL (11.5-16.0); LYMPHOCYTES # (AUTO) 1.9 10^3/uL (1.0-4.0); LYMPHOCYTES % (AUTO) 16 % (12-44); MEAN CORPUSCULAR HEMOGLOBIN 28 pg (25-34); MEAN CORPUSCULAR HGB CONC 33 g/dL (32-36); MEAN CORPUSCULAR VOLUME 83 fL (80-99); MEAN PLATELET VOLUME 10.8 fL (9.0-12.2); MONOCYTES # (AUTO) 0.9 10^3/uL (0.0-1.0); MONOCYTES % (AUTO) 7 % (0-12); NEUTROPHILS # (AUTO) 9.3 10^3/uL (1.8-7.8); NEUTROPHILS % (AUTO) 76 % (42-75); PLATELET COUNT 163 10^3/uL (130-400); WHITE BLOOD COUNT 12.3 10^3/uL (4.3-11.0)
[2023-04-03] MEDS ORDERED: PRENATAL VITAMIN TABLET PO SCH (07:00)
[2023-04-03 08:00] VITALS: BP 110/63
[2023-04-03] MEDS: DOCUSATE SODIUM 100 MG CAPSULE PO SCH ×2 (08:45→20:00)
[2023-04-03] MEDS ORDERED: FERROUS SULFATE 325 MG (IRON) TABLET PO SCH (09:00)
--- NOTE | 2023-04-03 09:33 | Postpartum Progress Note ---
Note Note Day #1 Subjective: Patient is without complaints. Ambulating, voiding. Tolerating a regular diet without nausea or vomiting. Normal lochia. Pain is well controlled with oral pain medications.Breast-feeding going well Objective: Vital signs stable afebrile Physical Exam: General - Alert and oriented, no apparent distress Breast symmetrical no erythema or engorgement Abdomen - Soft, appropriately tender to palpation, non-distended, fundus firm at umbilicus Lochia minimal Extremities - no edema, negative Vicki's bilaterally Assessment: [] post- day # 1, status post Spontaneous vaginal delivery. Recovering well, hemodynamically stable Plan: Routine care. Encourage breast feeding. Encourage ambulation. Ferrous sulfate supplementation. Plan for discharge [] Vitals - Labs Vital Signs - I&O Vital Signs Date Time Temp Pulse Resp B/P (MAP) Pulse Ox O2 Delivery O2 Flow Rate FiO2 04/03/23 04:35 36.2 63 16 87/57 (67) 98 Room Air 04/03/23 00:45 36.3 80 18 93/53 (66) 97 Room Air 04/02/23 21:44 36.6 76 18 106/56 (73) Room Air 04/02/23 21:28 88 16 134/66 (88) Room Air 04/02/23 21:13 81 16 102/57 (72) Room Air 04/02/23 20:58 91 18 103/56 (72) Room Air 04/02/23 20:42 88 18 105/62 (76) Room Air 04/02/23 20:28 69 16 109/68 (82) Room Air 04/02/23 20:13 86 18 103/54 (70) Room Air 04/02/23 19:58 74 18 101/55 (70) Room Air 04/02/23 19:20 36.6 112 18 118/82 (94) Room Air 04/02/23 18:30 36.5 70 18 104/56 (72) Room Air 04/02/23 18:15 65 18 107/62 (77) Room Air 04/02/23 18:00 90 18 115/72 (86) Room Air 04/02/23 17:45 73 18 106/63 (77) 04/02/23 16:45 78 18 93/59 (70) Room Air 04/02/23 16:00 60 18 107/62 (77) 100 Room Air 04/02/23 15:47 78 18 98/54 (69) Room Air 04/02/23 15:30 63 18 107/58 (74) Room Air 04/02/23 13:50 71 18 113/67 (82) 100 Room Air 04/02/23 13:47 87 18 113/70 (84) 100 Room Air 04/02/23 13:45 80 18 113/69 (84) 100 Room Air 04/02/23 13:40 36.8 75 18 102/73 (83) 100 Room Air 04/02/23 13:37 83 18 102/73 (83) 100 Room Air I & O 04/03/23 07:00 Intake Total 1000 ml Balance 1000 ml Labs Laboratory Tests 04/03/23 05:29: White Blood Count 12.3H, Red Blood Count 3.49L, Hemoglobin 9.6L, Hematocrit 29L, Mean Corpuscular Volume 83, Mean Corpuscular Hemoglobin 28, Mean Corpuscular Hemoglobin Concent 33, Red Cell Distribution Width 13.3, Platelet Count 163, Mean Platelet Volume 10.8, Immature Granulocyte % (Auto) 1, Neutrophils (%) (Auto) 76H, Lymphocytes (%) (Auto) 16, Monocytes (%) (Auto) 7, Eosinophils (%) (Auto) 1, Basophils (%) (Auto) 0, Neutrophils # (Auto) 9.3H, Lymphocytes # (Auto) 1.9, Monocytes # (Auto) 0.9, Eosinophils # (Auto) 0.1, Basophils # (Auto) 0.0, Immature Granulocyte # (Auto) 0.1 JESSICA BURGER DO Apr 03, 2023 09:33
--- NOTE | 2023-04-03 10:54 | Anesthesia-Regional Post-Op ---
Regional Patient Condition Mental Status: Alert, Oriented x3 Circulation: Same as Pre-Op Headache: Absent Sensation: Full Recovery Motor Block: Absent Post Op Complications Complications None Follow Up Care/Instructions Patient Instructions None needed. Anesthesia/Patient Condition Patient is doing well, no complaints, stable vital signs, no apparent adverse anesthesia problems. No complications reported per nursing. PURNIMA MARTINEZ CRNA Apr 03, 2023 10:54
[2023-04-03 12:00] VITALS: BP 110/68
[2023-04-03 16:00] VITALS: BP 109/68
[2023-04-03] MEDS: CATHETER FLUSH 10 ML SYR IV SCH (17:38)
[2023-04-03 20:00] VITALS: BP 108/67
== END 2023-04-03 21:12 | disposition home or self-care (01) | DRG 807 ==
LOC: LDRP 06:45
PROVIDERS: ADMIT Obstetrics & Gynecology; ATTEND Obstetrics & Gynecology
PROC: 10E0XZZ Delivery of Products of Conception, External Approach (ICD-10-PCS; principal; 2023-04-02)
PROC: 10907ZC Drainage of Amniotic Fluid, Therapeutic from Products of Conception, Via Natural or Artificial Opening (ICD-10-PCS; 2023-04-02)
PROC: 0HQ9XZZ Repair Perineum Skin, External Approach (ICD-10-PCS; 2023-04-02)
DX: O70.0 First degree perineal laceration during delivery (principal); Z37.0 Single live birth; Z3A.39 39 weeks gestation of pregnancy
CPT/HCPCS: 36415; 85025; 86780; 86850; 86900; 86901